=== PATIENT | female | born 1965 | race Caucasian/White ===

== ENCOUNTER 2020-12-27 08:41 | Outpatient (CLI) | payer OTHER | END 2020-12-27 23:59 | disposition home or self-care (01) | LOC: CARD 08:41 | PROVIDERS: ATTEND Family Medicine | DX: S47.9 Crushing injury of shoulder and upper arm, unspecified arm (principal); G56.01 Carpal tunnel syndrome, right upper limb; X58.XXXD Exposure to other specified factors, subsequent encounter | CPT/HCPCS: 95886; 95908 ==